=== PATIENT | male | born 1970 | race Caucasian/White ===

== ENCOUNTER → 2019-10-27 13:33 | Outpatient (CLI) | payer OTHER, SELFPAY ==
[2019-10-27 15:50] LABS: Cholesterol 218 mg/dL (140-199); HDL Cholesterol 28 mg/dL (40-60); LDL Cholesterol Calculated 116 mg/dL (<100); Triglycerides 369 mg/dL (35-150)
== END ==
PROVIDERS: Referring Provider Internal Medicine Cardiovascular Disease; Visit Provider Internal Medicine Cardiovascular Disease
DX: E78.5 Hyperlipidemia, unspecified (principal)
CPT/HCPCS: 36415; 80061

== ENCOUNTER → 2021-09-29 10:49 | Outpatient (CLI) | payer OTHER, SELFPAY ==
[2021-09-29 13:36] LABS: COVID19 -Nasal RAPID Negative (Negative)
== END ==
PROVIDERS: Visit Provider Family Medicine Sleep Medicine
DX: Z20.822 Contact with and (suspected) exposure to COVID-19 (principal)
CPT/HCPCS: 87635; C9803

== ENCOUNTER 2021-10-02 09:38 | Day surgery (SDC) | payer OTHER, SELFPAY ==
--- NOTE | 2021-10-02 | PATH_ITS ---
[facility] Accession Number: [id number] . 01 Material submitted: . PART A: colon - TRANSVERSE COLON POLYP PART B: colon - ASCENDING COLON X3 . 02 Diagnosis: A. Transverse Colon Polyp: Tubular adenoma. . B. Ascending Colon Polyp x3: Portions of tubular adenoma x3. MRV 10/05/2021 1023 Local . 02 Electronically signed: . Courtney Carpio MD, Pathologist NPI- [id number] . 01 Gross description: . Part A: TRANSVERSE COLON POLYP: Received in formalin is 1 fragment(s) of avelar, soft tissue measuring 0.2 x 0.1 x 0.1 cm submitted entirely in 1 cassette(s) Part B: ASCENDING COLON X3: Received in formalin are multiple fragment(s) of avelar, soft tissue measuring 0.5 x 0.5 x 0.1 cm in aggregate submitted entirely in 1 cassette(s) /CPE 10/03/2021 0625 Local . 02 Pathologist provided ICD-10: K63.5 . 02 CPT . 438015, 197646 Specimen Comment: A courtesy copy of this report has been sent to [phone] Performed at: 01 [facility] Cytology [address] [facility], [place], [place] [id number] MD Alo Hudson MD Phone: [phone] Performed at: 02 [facility] [address] [place], [place] [id number] MD Mary Alvarado MD Phone: [phone]
[2021-10-02 10:07] VITALS: BP 154/90; PULSE 74; RESP 16; TEMP 36.8; O2SAT 99
[2021-10-02 10:08] VITALS: BMI 26.4
--- NOTE | 2021-10-02 10:12 | PM.HP.1 ---
History of Present Illness History of Present Illness Date Patient Seen: 10/02/21 Time Patient Seen: 10:12 Chief complaint: SDC Narrative: Family history of colon cancer. Patient History Medical History Colonoscopy planned CPAP (continuous positive airway pressure) dependence Family history of colon cancer in mother Meds Home Medications and Allergies Home Medications Medication Instructions Recorded Confirmed Type clobetasol 0.05 % topical cream TOPICAL PRN 10/02/21 History fluticasone propionate 50 2 spray INTRANASAL DAILY PRN 10/02/21 10/02/21 History mcg/actuation nasal spray,suspension multivitamin 1 tab PO DAILY 10/02/21 10/02/21 History rosuvastatin 5 mg tablet 5 mg PO DAILY 10/02/21 10/02/21 History Allergies Allergy/AdvReac Type Severity Reaction Status Date / Time No Known Drug Allergies Allergy Verified 10/02/21 10:04 Review of Systems Review of Systems ROS: Yes All systems reviewed with the patient and are negative except as otherwise documented Exam Vital Signs (past 8 hours): - 10/02/21 10:07 Temperature 98.2 F Pulse Rate 74 Respiratory Rate 16 Blood Pressure 154/90 H Pulse Oximetry 99 Oxygen Delivery Method Room Air Const General: cooperative and comfortable Orientation: alert HENMT Head: normocephalic Ears: external ears normal Nose: external nose normal Face and sinus: normal facial exam Mouth: oral mucosae normal Eyes General: appearance normal, both eyes and all related structures Neck Neck: normal visual inspection Chest Chest: normal inspection of the chest Resp Effort & Inspection: normal respiratory effort Cardio Rate: regular rate GI Inspection: normal to inspection Skin General: no rashes or lesions noted and No jaundice Neuro General: patient alert and moves all extremities Cognition: normal cognition Speech: speech normal Extrem General: no pedal edema Psych Appearance: grossly normal Assessment & Plan Assessment & Plan narrative: 51-year-old male with a family history of colon cancer in his mother. Colonoscopy is planned for today. Time Spent With Patient Critical Care time: I spent a total of [] minutes of critical care time on this patient's care today; this time is exclusive of procedural time.
--- NOTE | 2021-10-02 10:13 | PM.PREOP ---
Pre-operative Note COVID-19 COVID-19 status: Negative Result date/Date tested (Pos, Neg/Pending): 09/29/21 Criteria for continued procedure: Possibility delay results in more complex future surgery or treatment Interval Note History & Physical reviewed/Exam performed by Physician: Yes Changes to H&P: No ASA Class (for procedural sedation): II
[2021-10-02] MEDS: SODIUM CHLORIDE 0.9% 1,000 ML 150 ML IV (10:30)
--- NOTE | 2021-10-02 11:52 | PM.OP.COLON ---
Operative Date/Time/Diagnoses Date of procedure: 10/02/21 Time of procedure: 11:53 Pre-op diagnosis: Family history of colon cancer Post-op diagnosis: same Procedure & Clinicians Study performed: Colonoscopy with hot and cold snare polypectomies Same procedure as scheduled: Yes Indications: Family history of colon cancer Surgeon: Nain Lee Procedure Notes SCOAP/Timeout: Done Procedure in detail: After the risks and benefits were explained, written and verbal informed consent was obtained. The patient was brought into the procedure room and placed into the left lateral decubitus position. Please see nurse solar hot water installer notes for sedation details. Digital rectal examination was accomplished. The scope was introduced into the patient and advanced under direct visualization to the cecum as identified by the appendiceal orifice and ileocecal valve. The scope was slowly withdrawn to carefully examine the mucosa for any defects or lesions. Comprehensive imaging was accomplished throughout the rectum including the dentate line. The colon was decompressed, the scope was then removed from the patient who tolerated the procedure well. Bowel prep adequate Adult colonoscope Scope withdrawal time: 11 minutes Sedation minutes: 23 Complications: none Impression: Patient had moderate diverticulosis all through the left colon extending even up into the transverse. There was a small 5 mm polyp removed with cold snare from the transverse. In the ascending colon there were 3 sessile small polyps ranging in size from 5-6 mm each. The smallest was removed with cold snare and the other 2 were removed with hot snare. Endoscopic diagnosis 1. Diverticulosis 2. Multiple colon polyps Post-procedure Plan for aftercare: 1. Await histopathology 2. Repeat colonoscopy 3 years. Disposition: PACU
[2021-10-02 11:54] VITALS: BP 125/82; PULSE 68; RESP 19; TEMP 36.6; O2SAT 99
[2021-10-02 11:59] VITALS: BP 125/85; PULSE 86; RESP 13; O2SAT 98
[2021-10-02 12:11] VITALS: BP 153/98; PULSE 62; RESP 16; TEMP 36.8; O2SAT 98
== END 2021-10-02 12:25 | disposition home or self-care (01) ==
PROVIDERS: PCP Family Medicine; Referring Provider Internal Medicine Gastroenterology; Visit Provider Internal Medicine Gastroenterology
PROC: 0DJD8ZZ Inspection of Lower Intestinal Tract, Via Natural or Artificial Opening Endoscopic (ICD-10-PCS; CPT 45378; principal; 2021-10-02 11:30)
DX: Z12.11 Encounter for screening for malignant neoplasm of colon (principal); Z80.0 Family history of malignant neoplasm of digestive organs; K57.30 Diverticulosis of large intestine without perforation or abscess without bleeding; D12.3 Benign neoplasm of transverse colon; D12.2 Benign neoplasm of ascending colon
CPT/HCPCS: 45385; J2704

== ENCOUNTER → 2022-02-26 12:44 | Outpatient (CLI) | payer OTHER, SELFPAY ==
--- NOTE | 2022-02-26 12:45 | DI.MRI.S_ITS ---
PROCEDURE: MR KNEE LT WO CON INDICATIONS: PAIN IN LEFT KNEE TECHNIQUE: Noncontrast sagittal PD fast spin echo and T2 fast spin echo with fat saturation, sagittal 3-D FLASH with fat saturation; coronal T1 spin echo and PD fast spin echo with fat saturation, and axial PD fast spin echo with fat saturation through the knee. COMPARISON: None. FINDINGS: Image quality: Excellent. Menisci: There is truncation of the free edge of the medial meniscal body, indicating radial tearing. Linear horizontal high signal intensity traverses the inner, middle and peripheral thirds of the medial meniscal body and posterior horn, demonstrating free edge extension, indicating horizontal tearing. Lateral meniscus is intact. Cruciate ligaments: The anterior and posterior cruciate ligaments appear intact. Medial structures: The medial collateral ligament appears intact, but demonstrates mild surrounding T2 signal elevation. Visualized portions of the pes anserinus tendons appear normal. Mild T2 signal elevation within and adjacent to the tibial insertion of the semimembranosus. No abnormal bursal fluid. Lateral structures: The lateral collateral ligament, long and short heads of the biceps femoris tendon appear intact. The popliteus tendon appears normal. Iliotibial band appears normal. Anterior structures: The quadriceps and patellar tendons appear intact. Mild T2 signal elevation within the quadriceps and patellar tendons at the patellar insertion sites. Patellar alignment is normal. No femoral trochlear dysplasia or ventral trochlear prominence. No edema in the infrapatellar fat pad. Small amount of prepatellar fluid and subcutaneous fat stranding is present. Bones and cartilage: No bone marrow contusions or fractures. Moderate articular cartilage loss diffusely overlies the weight-bearing aspects of the medial femoral condyle and medial tibial plateau. Articular cartilage fibrillation overlies the patellar apex and lateral patellar facet. Joint space: There is a small knee joint effusion and a trace Caldwell's cyst. Normal appearing synovial plicae are incidentally noted. IMPRESSION: 1. Tricompartmental osteoarthritis with associated articular cartilage loss. 2. Complex tearing of the medial meniscus. 3. Medial collateral ligament strain. 4. Knee joint effusion and Caldwell's cyst. 5. Insertional tendinitis of the semimembranosus. 6. Mild quadriceps and patellar tendinopathy. 7. Mild prepatellar bursitis. Dictated by: Larry Smith M.D. on 02/26/2022 at 13:37 Transcribed by: ARASH on 02/26/2022 at 13:39 Approved by: Larry Smith M.D. on 02/26/2022 at 16:19
== END ==
PROVIDERS: PCP Family Medicine; Referring Provider Family Medicine; Visit Provider Family Medicine
DX: M25.562 Pain in left knee (principal); M23.8X2 Other internal derangements of left knee; M17.12 Unilateral primary osteoarthritis, left knee; S83.242A Other tear of medial meniscus, current injury, left knee, initial encounter; M71.22 Synovial cyst of popliteal space [Baker], left knee; M25.462 Effusion, left knee
CPT/HCPCS: 73721

== ENCOUNTER 2024-09-23 10:13 | Day surgery (SDC) | payer OTHER, SELFPAY ==
[2024-09-23] MEDS: LACTATED RINGERS 1,000 ML 42 ML IV (11:29)
[2024-09-23 11:30] VITALS: BP 169/80; PULSE 84; RESP 14; TEMP 36.4; O2SAT 100
--- NOTE | 2024-09-23 11:59 | P.HP_ITS ---
History of Present Illness History of Present Illness Date Patient Seen: 09/23/24 Chief complaint: SDC Narrative: History of colon polyps last colonoscopy about 5 years ago [facility] Medical History (Updated 10/02/21 @ 10:28 by Ashley Green RN) Trigger finger of both hands Colonoscopy planned CPAP (continuous positive airway pressure) dependence Family history of colon cancer in mother Social History household members: spouse Smoking Status: Former smoker alcohol intake: current Meds Home Medications and Allergies Home Medications Medication Instructions Recorded Confirmed Type clobetasol 0.05 % topical cream topical PRN Rash 10/02/21 History fluticasone propionate 50 2 spray intranasal DAILY PRN 10/02/21 09/23/24 History mcg/actuation nasal allergies spray,suspension multivitamin 1 tab PO DAILY 10/02/21 09/23/24 History rosuvastatin 5 mg tablet 5 mg PO DAILY 10/02/21 09/23/24 History Allergies Allergy/AdvReac Type Severity Reaction Status Date / Time No Known Drug Allergies Allergy Verified 09/23/24 11:27 Exam Vital Signs (past 8 hours): - 09/23/24 11:30 Temperature 97.5 F L Pulse Rate 84 Respiratory Rate 14 Blood Pressure 169/80 H Pulse Oximetry 100 Oxygen Delivery Method Room Air Oxygen Delivery Method Room Air Narrative Exam Narrative: Oropharynx free of lesions Chest clear to auscultation percussion Cardiac exam reveals no S3 or murmur Assessment & Plan Assessment & Plan narrative: History of colon polyps need for follow-up colonoscopy. Risks, benefits, alternatives have been explained. Time-Based Coding :: [TOTAL MINUTES] spent with patient and on the chart (including review of chart, obtaining history, exam, reviewing outside data, placing orders, documenting exam and treatment plan, and counseling patient) on [DATE]. [employer] Director [employer] Document charge(s): No
--- NOTE | 2024-09-23 12:00 | PM.OP.COLON ---
Operative Date/Time/Diagnoses Date of procedure: 09/23/24 Time of procedure: 12:00 Pre-op diagnosis: See indication and findings Procedure & Clinicians Study performed: Colonoscopy Same procedure as scheduled: Yes Indications: Follow-up colonoscopy for history of polyps Surgeon: Naren Smith Procedure Notes Procedure in detail: After informed consent was obtained the patient was placed in left lateral decubitus position. The video colonoscope was introduced the rectum slowly advanced cecum. Preparation was good. On slow withdrawal mucosa was carefully examined. The scope was removed. The patient tolerated the procedure well. Blood loss none Complications none Sedation mac Findings 1. Normal colonoscopy to cecum Patient should have follow-up colonoscopy in 5 years given his history of adenomatous polyps
[2024-09-23 12:30] VITALS: BP 114/72; PULSE 74; RESP 10; TEMP 36.6; O2SAT 98
[2024-09-23 12:35] VITALS: BP 114/72; PULSE 78; RESP 16; TEMP 36.6; O2SAT 98
[2024-09-23 12:38] VITALS: BP 132/89; PULSE 77; RESP 13; O2SAT 98
[2024-09-23 12:39] VITALS: BP 129/81; PULSE 74; RESP 13; O2SAT 98
== END 2024-09-23 12:51 | disposition home or self-care (01) ==
PROVIDERS: PCP Family Medicine; Referring Provider Internal Medicine Gastroenterology; Visit Provider Internal Medicine Gastroenterology
PROC: 0DJD8ZZ Inspection of Lower Intestinal Tract, Via Natural or Artificial Opening Endoscopic (ICD-10-PCS; CPT 45378; principal; 2024-09-23 11:30)
DX: Z12.11 Encounter for screening for malignant neoplasm of colon (principal); Z86.0100 Personal history of colon polyps, unspecified
CPT/HCPCS: 45378; J2704